=== PATIENT | male | born 1975 | race Caucasian/White ===

== ENCOUNTER 2016-08-17 20:03 | Emergency (ER) | payer BC, OTHER ==
[~2016-08-17] VITALS: Ht 188 cm; Wt 124.7 kg
[~2016-08-17 20:03] MED LIST: ACET500T33 PO; IBUP200T77 PO
[2016-08-17 20:51] VITALS: BP 153/89
--- NOTE | 2016-08-17 21:16 | PHYS DOC ---
Past Medical History Past Medical History: No Pertinent History Past Surgical History: Tonsillectomy, Other Additional Past Surgical Histo: LT ANKLE, Alcohol Use: None Drug Use: None Adult General Chief Complaint Chief Complaint: ANKLE PROBLEM HPI HPI Patient is a 41 year old female presents emergency department stating that he was going into the stairs from the gradual he rolled his left ankle. He states that he is having pain on the left lateral part of his ankle on the left lateral part of his foot. He has good sensation to the toes peripheral pulses are 2+ cap refill brisk less than 2 seconds. Patient presents with his own crutches and which she's been ambulating with. Patient states that he has having increased pain and discomfort at this ankle in which she has had pins placed screws placed in the area before. He states that he is able to place weight on the foot but has increased pain and discomfort. Orthopedic repair by . Patient denies any knee pain or discomfort. Review of Systems Review of Systems Constitutional: Denies fever or chills [] Eyes: Denies change in visual acuity, redness, or eye pain [] HENT: Denies nasal congestion or sore throat [] Respiratory: Denies cough or shortness of breath [] Cardiovascular: No additional information not addressed in HPI [] GI: Denies abdominal pain, nausea, vomiting, bloody stools or diarrhea [] : Denies dysuria or hematuria [] Musculoskeletal: Denies back pain. C/o left ankle and foot pain Integument: Denies rash or skin lesions [] Neurologic: Denies headache, focal weakness or sensory changes [] Current Medications Current Medications Current Medications Medications (Trade) Dose Ordered Sig/Philip Start Time Stop Time Status Last Admin Dose Admin Acetaminophen/ Hydrocodone Bitart (Lortab 5/325) 2 tab 1X ONCE 08/17/16 21:30 08/17/16 21:31 DC 08/17/16 21:32 2 TAB Allergies Allergies Allergies Coded Allergies Type Severity Reaction Last Updated Verified No Known Drug Allergies 07/20/13 No Physical Exam Physical Exam Constitutional: Well developed, well nourished, no acute distress, non-toxic appearance. [] HENT: Normocephalic, atraumatic, bilateral external ears normal, oropharynx moist, no oral exudates, nose normal. [] Eyes: PERRLA, EOMI, conjunctiva normal, no discharge. [] Neck: Normal range of motion, no tenderness, supple, no stridor. [] Cardiovascular:Heart rate regular rhythm Lungs & Thorax: No respiratory distress noted Skin: Warm, dry, no erythema, no rash. [] Back: No tenderness Extremities: Left lateral ankle and left lateral foot tenderness, no cyanosis, no clubbing, ROM intact, no edema. Patient with slight bruising and discoloration noted significant swelling noted peripheral pulses 2+ cap refill brisk less than 2 seconds. Patient with good sensation noted to the toes. Neurologic: Alert and oriented X 3, normal motor function, normal sensory function, no focal deficits noted. [] Psychologic: Affect normal, judgement normal, mood normal. [] Current Patient Data Vital Signs Vital Signs Date Time Temp Pulse Resp B/P Pulse Ox O2 Delivery O2 Flow Rate FiO2 08/17/16 20:51 96.5 88 16 99 Room Air 96.5 EKG EKG [] Radiology/Procedures Radiology/Procedures [] Course & Med Decision Making Course & Med Decision Making Pertinent Labs and Imaging studies reviewed. (See chart for details) X-rays negative for any bony abnormalities. Patient will be placed in a posterior short leg splint. Patient she did arrive with his own crutches. Patient was instructed to use ice packs on 20 minutes off 20 minutes several times a day. Elevation as much as possible. She'll be encouraged to use Tylenol or ibuprofen [id number] for pain and discomfort. Patient will be discharged home in stable condition. Patient was provided with signs and symptoms to return back to the emergency department. [] Dragon Disclaimer Dragon Disclaimer This electronic medical record was generated, in whole or in part, using a voice recognition dictation system. Departure Departure Impression: Primary Impression: Left ankle sprain Disposition: 01 HOME, SELF-CARE Condition: STABLE Referrals: JAN GOMEZ MD (PCP) GUILHERME SHERWOOD MD Patient Instructions: Ankle Sprain, Splint Care, [id number] Additional Instructions: Home to rest. Ice packs on 20 minutes off 20 minutes several times a day. Elevation as much as possible. Tylenol or ibuprofen for pain and discomfort. Usual crutches for ambulation. No weightbearing on the left ankle or foot. Follow-up with orthopedic in the next week. Return back to emergency prior signs and symptoms of become worse. Splinting Splinting : Location: left ankle/foot Hand-Made Type: orthoglass Splint: posterior short leg splint Pre-Proc Neuro Vasc Exam: normal Post-Proc Neuro Vasc Exam: normal CAROLYNN TORIBIO APRN Aug 17, 2016 21:16
[2016-08-17] MEDS ORDERED: HYDROCODONE/APAP 5/325MG TABLET. PO ONE (21:30)
--- NOTE | 2016-08-18 09:05 | RAD ---
Three-view left foot study History: Rolled left foot and ankle on steps tonight. Swelling and pain. Findings: No acute fracture or dislocation or osteolytic process is seen. A small plantar spur of the calcaneus is evident. IMPRESSION: No acute fracture.
--- NOTE | 2016-08-18 09:07 | RAD ---
3 view left ankle study History: Rolling injury of foot and ankle on steps tonight. Swelling and pain. Findings: No acute fracture or dislocation or osteolytic process is seen. An old healed fracture of the distal left fibula is seen which has been fixated with a metallic plate and multiple screws. The mortise ankle joint is intact. IMPRESSION: No acute fracture.
== END 2016-08-17 22:14 | disposition home or self-care (01) ==
LOC: ER 20:03
DX: S93.402A Sprain of unspecified ligament of left ankle, initial encounter (principal); Z98.890 Other specified postprocedural states; X58.XXXA Exposure to other specified factors, initial encounter; Y93.89 Activity, other specified; Y92.89 Other specified places as the place of occurrence of the external cause; Y99.8 Other external cause status
CPT/HCPCS: 29515; 73610; 73630; 99284-25